=== PATIENT | male | born 1980 | race African-American/Black ===

== ENCOUNTER 2018-05-27 20:21 | Emergency (ER) | payer OTHER, SELFPAY ==
[~2018-05-27] VITALS: Ht 177.8 cm; Wt 77.0 kg
[2018-05-27] MEDS ORDERED: IBUPROFEN 600MG TABLET PO ONE (23:30)
[2018-05-27 23:53] VITALS: BP 129/82
== END 2018-05-28 03:02 | disposition home or self-care (01) ==
LOC: ER 20:21
DX: M25.572 Pain in left ankle and joints of left foot (principal); M25.571 Pain in right ankle and joints of right foot; F12.10 Cannabis abuse, uncomplicated; F17.210 Nicotine dependence, cigarettes, uncomplicated; W18.09XA Striking against other object with subsequent fall, initial encounter; Y93.89 Activity, other specified; Y92.488 Other paved roadways as the place of occurrence of the external cause
CPT/HCPCS: 73610; 99283